=== PATIENT | female | born 1950 | race Caucasian/White ===

== ENCOUNTER 2017-03-14 08:03 | Emergency (ER) | payer OTHER ==
[~2017-03-14] VITALS: Ht 154.9 cm; Wt 62.6 kg
[2017-03-14 08:53] LABS: BASOPHIL % 0.3 % (0-2); PLATELET COUNT 196 x10^3mcL (130-400); RED CELL DISTRIBUTION WIDTH 13.1 % (11.5-14.5)
[2017-03-14 09:03] LABS: CARBON DIOXIDE 26.7 mmol/L (21-32); CHLORIDE SERUM 109 mmol/L (98-107); CREATININE SERUM 0.7 mg/dL (0.6-1.0); GFR1 > 60 mL/min; GLUCOSE SERUM 112 mg/dL (74-106); POTASSIUM SERUM 3.7 mmol/L (3.5-5.1); SODIUM SERUM 144 mmol/L (136-145)
[2017-03-14 09:07] LABS: ALBUMIN 4.1 g/dL (3.4-5.0); ALKALINE PHOSPHATASE 75 U/L (46-116); ALT/SGPT 19 U/L (14-59); AST/SGOT 11 U/L (15-37); BILIRUBIN TOTAL 0.48 mg/dL (0.20-1.00); HDL CHOLESTEROL 57 mg/dL (40-60); LIPASE 123 IU/L (73-393); TOTAL PROTEIN, SERUM 7.3 g/dL (6.4-8.2); TRIGLYCERIDES 158 mg/dL (<150)
[2017-03-14 09:18] LABS: UA SPECIFIC GRAVITY >=1.030 (1.005-1.035); microscopic required? YES; urine erythrocyte NEGATIVE (NEGATIVE)
[2017-03-14 09:19] LABS: CHOLESTEROL 226 mg/dL (<200)
[2017-03-14 09:30] LABS: T3 TOTAL 1.16 ng/mL
[2017-03-14 09:47] LABS: FREE T4 1.12 ng/dL (0.76-1.46); FREE THYROXINE INDEX 3.9 ug/dL (1.4-4.5)
[2017-03-14 10:06] VITALS: BP 155/62
== END 2017-03-14 10:49 | disposition home or self-care (01) ==
LOC: ED 08:03
PROVIDERS: Specialist
DX: H81.10 Benign paroxysmal vertigo, unspecified ear (principal); I10 Essential (primary) hypertension
CPT/HCPCS: 83880; 84439; J2405; J7030; J8597

== ENCOUNTER 2017-07-12 09:30 | Emergency (ER) | payer OTHER ==
[2017-07-12 11:32] VITALS: BP 142/84
== END 2017-07-12 11:32 | disposition home or self-care (01) ==
LOC: ED 09:30
DX: J20.9 Acute bronchitis, unspecified (principal); I10 Essential (primary) hypertension
CPT/HCPCS: 87804; J1885; Q0092